=== PATIENT | female | born 1950 | race Caucasian/White ===

== ENCOUNTER → 2023-04-04 11:00 | Outpatient (CLI) | payer OTHER, SELFPAY ==
--- NOTE | 2023-04-04 | DI.CT.S_ITS ---
PROCEDURE: CT LUMBAR SPINE WO CON INDICATIONS: Spinal stenosis, lumbar region with neurogenic claudication TECHNIQUE: Noncontrast 3 mm thick sections acquired from the T12 level to the sacrum. Sagittal and coronal reformats were constructed. For radiation dose reduction, the following was used: automated exposure control. COMPARISON: None. FINDINGS: Image quality: Excellent. Bones: No acute vertebral body compression fractures. No suspicious lytic or blastic bony lesions. No pars defects. Grade 1 anterior spondylolisthesis L4-5 and L5-S1 T12-L1: Unremarkable L1-L2: Unremarkable L2-L3: Unremarkable L3-L4: Disc space narrowing and hypertrophic facet joints results in mild central stenosis. Moderate left and mild right foraminal stenosis L4-L5: Disc space narrowing with circumferential disc bulge and hypertrophic facet joints results in severe central stenosis. Moderate bilateral foraminal stenosis L5-S1: Disc space narrowing and hypertrophic facet joints present. Mild central stenosis. Moderate bilateral foraminal stenosis. Soft tissues: No retroperitoneal masses or hematomas. Visualized aorta is normal in caliber. IMPRESSION: Multilevel degenerative disc disease and arthropathy results in varying degrees of central and foraminal stenosis including severe central stenosis L4-5 Approved by: Alejandro Murillo M.D. on 04/04/2023 at 18:26
== END ==
PROVIDERS: PCP Family Medicine; Referring Provider Orthopaedic Surgery Orthopaedic Surgery of the Spine; Visit Provider Orthopaedic Surgery Orthopaedic Surgery of the Spine
DX: M48.062 Spinal stenosis, lumbar region with neurogenic claudication (principal); M48.07 Spinal stenosis, lumbosacral region; M51.36 Other intervertebral disc degeneration, lumbar region; M47.816 Spondylosis without myelopathy or radiculopathy, lumbar region; M47.817 Spondylosis without myelopathy or radiculopathy, lumbosacral region
CPT/HCPCS: 72131

== ENCOUNTER 2023-05-09 06:29 | Inpatient (IN) | payer OTHER, SELFPAY ==
[2023-05-02 08:37] VITALS: BMI 27.8
[2023-05-09] VITALS (15 sets, daily range): BP systolic 110–144; BP diastolic 52–78; PULSE 61–89; RESP 10–20; TEMP 36–36.5; O2SAT 91–98; BMI 27.8
[2023-05-09] MEDS: LACTATED RINGERS 1,000 ML 42 ML IV ×3 (07:31→12:10)
--- NOTE | 2023-05-09 07:45 | PM.PREOP ---
Pre-operative Note Interval Note History & Physical reviewed/Exam performed by Physician: Yes Changes to H&P: No
[2023-05-09] MEDS: CEFAZOLIN 2 GM/100 ML PREMIX 100 ML IV ×3 (08:12→23:15)
--- NOTE | 2023-05-09 08:44 | SUR.OPER ---
Prone on spine table, head in foam head support, padded chest and pelvic supports, gel pad at knees, lower legs supported by pillows; nipples, genitalia and toes free of pressure, arms secured on foam padded arm boards at <90 degrees abduction. Tape over blanket at thigh secured to table.
[2023-05-09] MEDS: BUPIVACAINE 0.25% (PF) 30 ML, EPINEPHrine 0.15 MG INJ (09:24)
[2023-05-09] MEDS: BUPIVACAINE LIPOSOME 266 MG/20 ML VIAL INJ (09:26)
--- NOTE | 2023-05-09 11:42 | DI.RAD.S_ITS ---
PROCEDURE: XR LUMBAR SPINE 2-3V INDICATIONS: L 4-5, L5-S1 TLIF TECHNIQUE: 2 views of the lumbar spine were acquired. COMPARISON: [facility] JOSE DE JESUS Jimenez, XR LUMBAR SPINE 2 OR 3 VIEWS, 01/07/2023, 9:41. FINDINGS: Spot fluoroscopic intraoperative images of the lumbar spine demonstrate postsurgical changes from posterior fixation at L4-5 and L5-S1 with bilateral pedicle screws and interbody rods as well as disc spacers. IMPRESSION: Postsurgical changes at L4 through S1. Approved by: Wilton Romero M.D. on 05/09/2023 at 11:55
--- NOTE | 2023-05-09 12:03 | P.OP_ITS ---
Operative Date/Time/Diagnoses Date of procedure: 05/09/23 Time of procedure: 07:40 Pre-op diagnosis: 1. L4-5, L5-S1 spondylolisthesis 2. Lumbar spinal stenosis with neurogenic claudication Post-op diagnosis: same Procedure & Clinicians Procedure: 1. L4-5, L5-S1 Postero-lateral and posterior interbody fusion 2. L4-5, L5-S1 interbody cage placement. 3. L4-5, L5-S1 decompressive laminectomy with bilateral facetecomies 4. L4-5, L5-S1 Posterior segmental instrumentation 5. [place] of bone marrow from iliac crest 6. Utilization of microsurgical technique and operating microscope 7. Utilization of robotic assisted navigation Same procedure as scheduled: Yes Indications: Patient has been having chronic back pain and worsening lumbar radiculopathy and symptoms of neurogenic claudication. Patient failed multiple conservative management with worsening pain weakness and numbness in her lower extremity. Patient has been having difficulty performing activity of daily living. After discussing risks benefits of treatment options, patient elected proceed with surgery. Surgeon: Leo Masterson [facility] Nurse Practitioner: Milana Mckee Click Yes if Unassisted: No Anesthesia Type: General Operative Notes Closure Type: primary Specimen(s): none sent Prosthetic devices, grafts, tissues, transplants, or devices: Globus CREO MIS screws, Rise cages Applied: catheter Estimated Blood Loss (mL): 100 Blood products transfused: none Procedure in detail: Patient was seen in the preoperative area. Risks and benefits of the surgery was discussed with the patient. Informed consent was obtained from the patient and placed in the chart. Surgical site was marked. Patient was taken to the operative room. General anesthesia was administered. Prophylactic antibiotic was given to the patient less than 30 min before the incision was made. Patient was placed into a prone position on the Maverick table. Patient's back was then prepped and draped in the sterile fashion. Time-out was performed at this time. After patient was prepped and draped, patient's PSIS was palpated and marked bilaterally. Small 1 cm incision was made over the PSIS for placement of the reference probes. Two trocar was placed into the PSIS 1 on each side. The reference probe was attached to the trocar of the reference apparatus. At this time the C-arm imaging was used to confirm AP and lateral of L4-L5, L5- S1 vertebrae and merged the C-arm imaging using the Happify robotic navigation system with the CT of the lumbar spine. After successful merging was completed and confirmed, skin marker was used to paulina out the skin incision using the Happify robotic arm. Bilateral incision was made at this time. Pre templated trajectory was used and guided using the Happify robotic navigation system for bilateral L4, L5, S1 pedicle screw placement. This was done by using the robotic arm to guide the high-speed bur to make a cortical entry point. Next a drill was placed also using the robotic arm and guided using the navigation system drilling partially through bilateral L4, L5 and S1 pedicles. Next L4, L5, S1 pedicle screws it was pre templated and measured was placed onto the power courtesy driver and inserted into the pedicles bilaterally. After all 6 screws were placed C-arm imaging was taken of both AP and lateral to confirm the placement. Excellent placement of the screws were confirmed and a matched precisely with the pre planned screw placement using the navigation system. MARs retractor was inserted using Howbuyivation guidence. Globus MARS retractors was placed inside the incision and docked onto the L4 and L5 lamina. Using microsurgical technique and operating microscope, a L4, L5 laminectomy and L4-5, L5-S1 facetectomy was performed using a Kerrison rongeur. The laminectomy and facetectomy was performed in order to decompress patient's cauda equina as well as the nerve roots exiting at the L4-5, L5-S1 level. Patient was found have severe lateral recess and neural foramen stenosis which was fully decompressed a fter the laminectomy facetectomy. More than 75% of the facets were removed during the process of decompression rendering L4-5, L5-S1 level grossly unstable and required a fusion procedure at the same time. The disc space at L4-5, L5-S1 was identified, and a total diskectomy was performed at L4-5, L5-S1 level. The endplates were decorticated using a rasp and shaver. The total diskectomy and decortication was performed at L4-5, L5-S1 level in order to to accomplish a L4- 5, L5-S1 fusion. The local bone from the laminectomy and facetectomy was saved for local bone grafting. After the total diskectomy and decortication was completed, Trifecta bone graft material was combined with local bone that was harvested earlier. At this time, a separate skin is incision was made over the iliac crest. A Jamshidi needle was inserted into the iliac crest through a separate skin incision. 5 cc of bone marrow aspiration was obtained through the separate skin incision using a Jamshidi needle from the iliac crest. The bone marrow aspiration was combined with local bone and the DBM bone grafting material. The bone grafting material was placed into the L4-5, L5-S1 interbody space along with a expandable cage. The cage was expanded to its maximum height using the torque limiting screwdriver. The disc preparation as well as the cage insertion were also performed under navigation guidance. After the cage was placed, AP and lateral C-arm imaging was taken to confirm placement of the cage and excellent position was confirmed. Globus MARS retractor was inserted and docked onto the L4-5, L5-S1 posterolateral gutter on the right side. Using the power drill, posterior- lateral decortication was performed at L4-5, L5-S1 level until bleeding cortical bone was identified. The remaining bone grafting material was placed into the L4-5, L5-S1 posterior lateral gutter he order to accomplish posterolateral fusion at the L4-5, L5-S1 level. At this time the tulips were attached to the L4, L5, S1 pedicle screw shanks. After measuring the length of the rods, they were inserted into the tulips of the pedicle screws and locked in place using locking caps and torque limiting screwdriver bilaterally. Total 6 caps and 2 titanium rods was used in order to complete the posterior instrumentation construct. After all the hardware was placed, and confirmed with AP and lateral C-arm imaging, the wound was then irrigated with sterile normal saline and packed with Ray-Judie gauze for 3 min to accomplish hemostasis. After the gauze was removed the deep fascia was closed with #1 Vicryl suture. The subcutaneous layer was closed with 2-0 Vicryl. The skin was closed with skin marcelina. Patient tolerated the procedure well. There were no complications. Neuro monitoring system was used to monitor patient's neurologic status throughout entire procedure. There was no disturbance of the neural monitoring signals throughout the case. The Operation could not have been safely performed without compromising the technical result or length of the procedure, without the assistance of a skilled surgical garment fitter. The surgical garment fitter was medically necessary for proper positioning, retraction and manipulation of instruments, proper exposure, surgical preparation, and manipulation of tissue. Complications: none Post-operative Condition: stable Disposition: PACU Plan for aftercare: Admit to inpatient hospital
[2023-05-09] MEDS: hydrOXYzine pamoate 25 MG CAPSULE PO (12:41)
[2023-05-09] MEDS: ACETAMINOPHEN 325 MG TABLET 650 MG PO ×2 (12:41→20:02)
[2023-05-09] MEDS: TRAMADOL 50 MG TABLET PO (12:41)
[2023-05-09 12:52] LABS: Appearance Urine UA CLEAR; Bilirubin Urine UA NEGATIVE (NEGATIVE); Color Urine UA YELLOW; Glucose Urine UA NEGATIVE (Negative); Ketones Urine UA NEGATIVE (NEGATIVE); Leukocyte Esterase Urine UA NEGATIVE (NEGATIVE); Nitrite Urine UA NEGATIVE (Negative); Occult Blood Urine UA 3+ (Negative); Protein Urine UA NEGATIVE (Negative); Specific Gravity Urine UA 1.025 (1.000-1.035); Urobilinogen Urine UA 0.2 E.U./dL (0.2)
[2023-05-09 12:53] LABS: pH Urine UA 5.5 (4.5-8.0)
[2023-05-09 13:00] LABS: Bacteria Urine None Seen; Culture Indicated Urine Cult Not Indicated; RBC Urine 10-30/HPF (0-5/HPF); Squamous Epithelial Cell Urine 0-1 /HPF (0-5/HPF); Uric Acid Crystals Urine Moderate; WBC Urine None Seen (0-5/HPF)
--- NOTE | 2023-05-09 13:01 | SUR.PHASEI ---
Report called to
--- NOTE | 2023-05-09 13:23 | SUR.PHASEI ---
Patient transferred to the floor with her belongings bag. Bedside report given too SLAVA Alvarez. Condition stable. IV and epstein patent. Dressing checked with RN.
[2023-05-09] MEDS: LACTATED RINGERS 1,000 ML 125 ML IV ×2 (13:25→20:10)
--- NOTE | 2023-05-09 16:05 | OT.IP.EVAL ---
Current Diagnoses Spondylolisthesis, lumbar region (05/09/23) Spinal stenosis, lumbar region with neurogenic claudication (05/09/23) Surgery Performed Operation Date: 05/09/23 07:45 Actual Procedures p L4-5, L5-S1 TLIF with posterior instrumentation -Robot - Leo Masterson MD Past Medical History (Last Updated 05/02/23 @ 09:06 by Cammie Bo RN) Acid reflux Surgical History (Last Updated 05/02/23 @ 09:06 by Cammie Bo RN) H/O right wrist surgery Hx of appendectomy (1974) Hx of repair of right rotator cuff Hx of tubal ligation S/P foot surgery, right Occupational Therapy Inpatient Evaluation/Re-Eval M1 PT/OT-IP Prior Functional Status Start: 05/09/23 16:03 Freq: NEEDED Status: Active Protocol: Document 05/09/23 16:03 CGR (Rec: 05/09/23 16:19 CGR [id number]) Medical Review Prior Functional Status Medical History Reviewed Yes Communication Pt is an effective verbal communicator Mobility and Gait Pt states that she is IND in mobility in the AM but then needs the SPC or walker by the end of the day d/t pain. 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 Social History Household Members spouse,children Living Arrangements House Number of Floors (Floors) Two Floors Number of Stairs To Enter/Railing? no steps to enter, elevator to get to the second floor. Home Environment High Toilet,Walk in Shower, Built-In Shower Seat Home Equipment Front Wheel Walker,Manual Wheelchair,Hand Held Shower, Grab Bars Near Toilet,Grab Bars In Shower Employment Status Retired Additional Social History Comment Pt lives with her , Dev and her 37 yo son Moses . M2 OT-IP Current Condition Start: 05/09/23 16:03 Freq: Status: Active Protocol: Document 05/09/23 16:03 CGR (Rec: 05/09/23 16:19 CGR [id number]) Occupational Therapy Current Condition Current Condition Evaluation Date 05/09/23 Treatment Diagnosis L4-S1 TLIF Diagnosis Onset Date 05/09/23 M3 OT- IP Subjective and Pain Start: 05/09/23 16:03 Freq: Status: Active Protocol: Document 05/09/23 16:03 CGR (Rec: 05/09/23 16:19 CGR [id number]) OT- Subjective Occupational Therapy Visit Type Type Initial Evaluation Visit Start Time 15:26 Visit Stop Time 16:05 Total Visit Minutes 39 OT Pain Assessment Pain When Pain Assessed At Rest Pain Present Pain Present Pain Reported Location back Intensity 4 Scale Used Numeric (0 - 10) Management Techniques Modification of Treatment,Re- positioning,Timing of Activity with Medications M4 OT- IP ADL's Start: 05/09/23 16:03 Freq: Status: Active Protocol: Document 05/09/23 16:03 CGR (Rec: 05/09/23 16:19 CGR [id number]) OT ACL-Dzdk-Wdamani General Evaluation Self-Feeding Ability Independent Comments OT Self-Feeding Comments eating jello OT ADL-Grooming Comments OT Grooming Comments not performed OT ADL-Oral Care Comments Oral Care Comments not performed OT ADL-Dressing General Eval Lower Body Dressing Ability Total Assistance Areas Needing Assistance Socks OT ADL-Toileting General Evaluation Toileting Ability Total Assistance Comments OT Toileting Comments epstein OT ADL-Bathing Comments OT Bathing Comments not performed M5 OT- IP IADL's Start: 05/09/23 16:03 Freq: Status: Active Protocol: Document 05/09/23 16:03 CGR (Rec: 05/09/23 16:19 CGR [id number]) OT-Instrumental Activities of Daily Living Deficits IADL Deficits Identified No Deficits Home Safety Awareness Awareness of Need for Assistance at Home Good Awareness Ability to Problem Solve Emergency Able to Problem Solve Situations Medication Management Medication Management No Deficits Identified Money Management Money Management No Deficits Identified Meal Preparation Meal Preparation No Deficits Identified Musical Instrument Maker Or Repairer Musical Instrument Maker Or Repairer Caregiver Provides Assist Driving Driving 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 OT- IP Functional Cognition Start: 05/09/23 16:03 Freq: Status: Active Protocol: Document 05/09/23 16:03 CGR (Rec: 05/09/23 16:19 CGR [id number]) Cognitive Factors Limiting Selfcare Function Cognitive Ability Level of Alertness Alert Patient Orientation Name,Age,Birthday,Month,Date, Year,Day of Week,Place, Situation Attention Span Ability Capable of Focused Attention, Capable of Sustained Attention Ability to Follow Commands Able to Follow One Step Commands with Increased Time, Able to Follow One Step Commands with Repetition OT- Vision and Hearing OT- Hearing Assessment OT- Hearing Assessment WFL OT- Vision Assessment Visual Acuity Glasses For Reading Visual Attentiveness WFL Occular Pursuits WFL Visual Convergence WFL M7 OT- IP Mobility and Balance Start: 05/09/23 16:03 Freq: Status: Active Protocol: Document 05/09/23 16:03 CGR (Rec: 05/09/23 16:19 CGR [id number]) OT- Bed Mobility Assessment Supine to Sit Supine to Sit Assist Standby Assistance Scooting Scooting to Edge of Bed Standby Assistance OT-Transfer Assessment Sit to and From Stand Sit to and from Stand Standby Assistance Transfers Transfer Ability Standby Assistance Technique Transfer Destination Bed,Chair Transfer Technique Stand Step Pivot Devices Transfer Assistive Devices Gait Belt,Front Wheeled Walker Comments Mobility Comments Pt performed bed mobility from a flat bed then stood and ambulated in the room ~10 feet total before returning to chair. OT- Balance Assessment Sitting Balance and Reactions Static Sitting Balance Ability Good Dynamic Sitting Balance Ability Good M8 OT- IP Objective Assessments Start: 05/09/23 16:03 Freq: Status: Active Protocol: Document 05/09/23 16:03 CGR (Rec: 05/09/23 16:19 CGR [id number]) OT Gross Range of Motion Upper Extremity Range of Motion Assessment Within Functional Limits OT Strength Upper Extremity Strength Assessment Within Functional Limits Comments Strength Comments grossly 4+/5 OT- Coordination Assessment Upper Extremity Finger to Nose Test Within Functional Limits Finger Tapping Test Within Functional Limits OT-Muscle Tone Assessment Muscle Tone WNL Yes OT Sensation Assessment Edema Edema Absent M9 OT- IP Assessment and Plan Start: 05/09/23 16:03 Freq: Status: Active Protocol: Document 05/09/23 16:03 CGR (Rec: 05/09/23 16:19 CGR [id number]) OT Summary Assessment and Plan Potential Rehabilitation Potential Excellent Analytic Complexity at Evaluation Low Summary OT Impairments Pain,Balance,Functional Mobility,Grooming,Dressing, Toileting,Bathing,Toilet Transfers,Shower Transfers, Activity Tolerance Progress Towards Goals Progressing Toward Goals Assessment Summary Pt presents as a low complexity evaluation s/p admit for L4-S1 TLIF. Pt is progressing well with out of bed activity on POD #0. Pt is likely to progress to discharge home tomorrow. Pt will benefit from 1-2 more OT sessions for LB dressing and home safety after back sx. Goals Grooming Goal Independent Dressing Goal Independent Toileting Goal Independent Bathing Goal Independent Toilet Transfer Goal Independent Shower Transfer Goal Independent Days to Meet Goals 2 Frequency of Treatment Frequency Of Treatment Once a Day Treatment Plan OT Treatment Plan ADL Training,Functional Mobility,Patient/Family Education,Discharge Planning Other Treatment Recommendations and Next LB dressing, home safety after Treatment Focus back sx Discharge Recommendations OT Discharge Recommendations Home with Assistance Transportation Needs at Discharge Private Vehicle
[2023-05-09] MEDS: HYDROMORPHONE 2 MG TABLET PO ×2 (17:22→23:14)
--- NOTE | 2023-05-09 18:17 | PC.NURSE ---
Day shift: Pt up to floor from PACU at 1310. Moderate amount of shadow drainage noted on back dressing. Marked with sharpie. Called MD Masterson regarding need for pain medications that are not oxycodone (pt reports having extreme episode of dizziness in the past with oxycodone and/or hydrocodone). Received verbal order to d/c oxycodone and changed to PO dilaudid per MD Masterson. Also notified MD Masterson of pt reporting numbness in R thigh. Good pulses. No redness or swelling. Pt reports she can feel her lower leg, only thigh that is numb. MD Masterson stated no action needed right now. Will continue to monitor.
[2023-05-09] MEDS: DOCUSATE 100 MG CAPSULE PO (20:01)
[2023-05-09] MEDS: SENNOSIDES 8.6 MG TABLET 17.2 MG PO (20:02)
[2023-05-10] MEDS: LACTATED RINGERS 1,000 ML 125 ML IV (04:59)
[2023-05-10] MEDS: HYDROMORPHONE 2 MG TABLET PO ×2 (05:06→15:44)
[2023-05-10 06:47] LABS: Hematocrit 36.1 % (36-46); Hemoglobin 12.1 g/dL (12.0-16.0)
--- NOTE | 2023-05-10 07:23 | PM.PNPO.1 ---
Subjective Subjective Date Patient Seen: 05/10/23 Time Patient Seen: 07:24 Interval history: Patient's pain has been moderate to severe. Denies fever or chills. No nausea or vomiting. Patient does have assistance at home. Patient states he has been difficult to get in and out of bed secondary to her pain Exam Vital Signs (past 8 hours): Oxygen Delivery Method Room Air Oxygen Flow Rate 0 Narrative Exam Narrative: 72-year-old female sitting in bedside chair in no apparent distress. Motor functions intact bilateral lower extremities. Sensation grossly intact to light touch bilateral lower extremities. Const General: cooperative and comfortable Nutritional Appearance: average body habitus Orientation: alert Resp Effort & Inspection: normal respiratory effort and able to speak in complete sentences Objective Labs 05/10/23 05:35 Labs: Laboratory Results - last 24 hr 05/09/23 05/10/23 12:20 05:35 Hgb 12.1 Hct 36.1 Urine Color Yellow Urine Appearance Clear Urine pH 5.5 Ur Specific [place] 1.025 Urine Protein Negative Urine Glucose (UA) Negative Urine Ketones Negative Urine Occult Blood 3+ H Urine Nitrate Negative Urine Bilirubin Negative Urine Urobilinogen 0.2 Ur Leukocyte Esterase Negative Urine RBC 10-30/hpf H Urine WBC None seen Ur Squamous Epith Cells 0-1 /hpf Uric Acid Crystals Moderate H Urine Bacteria None seen Ur Culture Indicated? Cult not indicated PFSH Medical History Acid reflux Surgical History S/P foot surgery, right H/O right wrist surgery Hx of repair of right rotator cuff Hx of tubal ligation Hx of appendectomy (1974) Social History household members: spouse and children Smoking Status: Never smoker alcohol intake: current Assessment & Plan Post-op Postoperative Procedures: Procedures Operation Date: 05/09/23 07:45 Actual Procedure Side Surgeon p L4-5, L5-S1 TLIF with posterior instrumentation -Robot Leo Masterson MD Postoperative day: 1 Postoperative status: doing well and marginal pain control Postoperative plan: routine post-op care Postoperative plan narrative: Mobilize with physical therapy, limit bending, twisting, lifting Multimodal pain management Disposition, likely home later today after physical therapy
[2023-05-10] MEDS: DOCUSATE 100 MG CAPSULE PO (07:50)
[2023-05-10 08:00] VITALS: BP 112/59; PULSE 66; RESP 18; TEMP 36.4; O2SAT 97
[2023-05-10] MEDS: ACETAMINOPHEN 325 MG TABLET 650 MG PO ×2 (08:03→13:36)
--- NOTE | 2023-05-10 09:38 | PT.IIE ---
Current Diagnoses Spondylolisthesis, lumbar region (05/09/23) Spinal stenosis, lumbar region with neurogenic claudication (05/09/23) Surgery Performed Operation Date: 05/09/23 07:45 Actual Procedures p L4-5, L5-S1 TLIF with posterior instrumentation -Robot - Leo Masterson MD Surgical History (Last Reviewed 05/10/23 @ 07:25 by JUNIOR BarretoC) H/O right wrist surgery Hx of appendectomy (1974) Hx of repair of right rotator cuff Hx of tubal ligation S/P foot surgery, right Medical History (Last Reviewed 05/10/23 @ 07:25 by KVNG Barreto-C) Acid reflux Physical Therapy Inpatient Evaluation/Re-Eval M1 PT/OT-IP Prior Functional Status Start: 05/09/23 16:03 Freq: NEEDED Status: Active Protocol: Document 05/10/23 09:05 MB (Rec: 05/10/23 09:38 [id number]) Medical Review Prior Functional Status Medical History Reviewed Yes Communication Pt is an effective verbal communicator Mobility and Gait Pt states that she is IND in mobility in the AM but then needs the SPC or walker by the end of the day d/t pain. 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 Social History Household Members spouse,children Living Arrangements House Number of Floors (Floors) Two Floors Number of Stairs To Enter/Railing? no steps to enter, elevator to get to the second floor. Home Environment High Toilet,Walk in Shower, Built-In Shower Seat Home Equipment Front Wheel Walker,Manual Wheelchair,Hand Held Shower, Grab Bars Near Toilet,Grab Bars In Shower Employment Status Retired Additional Social History Comment Pt lives with her , Dev and her 37 yo son Moses . M2 PT-IP Current Condition Start: 05/10/23 08:58 Freq: NEEDED Status: Active Protocol: Document 05/10/23 09:05 MB (Rec: 05/10/23 09:38 [id number]) Physical Therapy Current Condition Current Condition Evaluation Date 05/10/23 Treatment Diagnosis L4-5, L5-S1 TLIF post- instrumentation Onset Date 05/09/23 M3 PT-IP Subjective Start: 05/10/23 08:58 Freq: NEEDED Status: Active Protocol: Document 05/10/23 09:05 MB (Rec: 05/10/23 09:38 MB [id number]) Subjective Physical Therapy Visit Type Type Initial Evaluation Visit Start Time 09:05 Visit Stop Time 09:26 Total Visit Minutes 21 Number of BROTH SETTER Visits 0 Physical Therapy Visit Comments Patient Comments The pain is worse today. Therapy Pain Assessment Pain When Pain Assessed During Mobility Pain Present Pain Present Pain Reported Location back Intensity 6 Scale Used Cody-Parada (Faces) Description Acute,Sharp,Spasm,Stabbing Pain Behaviors Facial Grimacing,Guarding, Wincing Pain Management Techniques Apply Cold,Distraction, Modification of Treatment,Re- positioning,Timing of Activity with Medications M4 PT-IP Mobility and Gait Start: 05/10/23 08:58 Freq: NEEDED Status: Active Protocol: Document 05/10/23 09:05 MB (Rec: 05/10/23 09:38 [id number]) PT-Bed Mobility Assessment Rolling Type of Rolling Log Rolling Level of Assist Standby Assistance,1 Person Assistance Supine to Sit Supine to Sit Moderate Assistance,1 Person Assistance Sit to Supine Sit to Supine Maximum Assistance,1 Person Assistance Scooting Scooting to Edge of Bed Standby Assistance PT-Transfer Assessment Sit to and From Stand Sit to and from Stand Standby Assistance Equipment Transfer Assistive Device Gait Belt,Front Wheeled Walker Orthotic/Prosthetic Devices or Brace: No Comments Mobility Comments Pt performs STS from toilet to RW with left hand on rail and right and on walker and CGA, SBS for STS from bed to RW and RW back to bed, cues to push up from the bed and not from the walker, gait belt donned Gait Assessment Gait Gait Assistance Required: Contact Guard Assist,1 Person Assist Distance (Feet) 60 Able to Maintain Weight Bearing Status Yes During Gait Assistive Devices Assistive Device Gait Belt,Front Wheeled Walker Orthotic/Prosthetic Devices or Brace: No Gait Deviations General Gait Pattern Antalgic,Decreased Stride Length,Decreased Feet Clearance Factors Limiting Gait Function Factors Limiting Gait Function Decreased Activity Tolerance, Decreased Sensation,Decreased Strength,Pain Comments Gait Comments Pt gait trains slowly, 15' from commode to bed, 60' in the hallway and back to bed, one turn, with RW and wide LAY and careful, antalgic stepping. No dizziness. PT-Balance Assessment Sitting Balance and Reactions Static Sitting Balance Ability Fair Dynamic Sitting Balance Ability Fair Standing Balance and Reactions Static Standing Balance Ability Fair Dynamic Standing Balance Ability Fair Device Used RW M5 PT-IP Objective Assessments Start: 05/10/23 08:58 Freq: NEEDED Status: Active Protocol: Document 05/10/23 09:05 MB (Rec: 05/10/23 09:38 [id number]) Orientation Orientation/Cognition Level of Alertness Alert Orientation Name,Age,Birthday,Month,Date, Year,Day of Week,Place, Situation Language Function Ability No Deficits Noted Safety Awareness Understands Safety Issues Memory Description No Deficits Noted Gross Range of Motion Upper Extremity ROM Impairments Defer to OT Lower Extremity ROM Assessment Within Functional Limits Impairments Did not push range in legs or perform MMT given back surgery last date and pt with c/o right thigh numbness Strength Comments Strength Comments Deferred manual muscle testing and pt's LE strength is functional for transfers and gait with RW today Sensation Assessment Sensation Gross Sensation Right LE Impaired Sensation Description Numbness Comments Sensation Comments Right thigh numbness is new post-op and pt reports resolution of her pre-op left leg paresthesias M6 PT-IP Treatment Start: 05/10/23 08:58 Freq: NEEDED Status: Active Protocol: Document 05/10/23 09:05 MB (Rec: 05/10/23 09:38 [id number]) Physical Therapy Treatment Education Education Provided Precautions,Safety M7 PT-IP Assessment and Plan Start: 05/10/23 08:58 Freq: NEEDED Status: Active Protocol: Document 05/10/23 09:05 MB (Rec: 05/10/23 09:38 [id number]) PT Summary Assessment and Plan Potential Rehabilitation Potential Good Status of Condition at Evaluation Stable Summary Impairments Pain,ROM,Strength,Balance, Sensation,Bed Mobility, Transfers,Gait,Activity Tolerance Progress Towards Goals Progressing Toward Goals Assessment Summary Pt is a pleasant lady who requires SBA with RW for transfers and gait post-op and up to mod A for bed mobility to help sit up and scoot legs back in the bed when in side lying. Pt is unable to perform mini functional bridge to scoot in the bed d/t spasm pain. She performs bed mobility and log rolling to each direction today and needs to get up to her right at home and getting in and out of the bed on the right side is more difficult for her today. She does not have any dizziness and she does report new onset of right thigh numbness since surgery. Her pre-op left leg paresthesias are resolved post-op. She has some functional weakness in legs post-op and deferred MMT post-op day one and with her pain complaints today. She will benefit from acute and post-acute PT to improve I mobility, transfers, gait and balance. Goals Bed Mobility Goal Independent Transfer Goal Independent,Front Wheeled Walker Gait Goal Independent,Front Wheel Walker Gait Distance 100 Days to Meet Goals 2 Frequency of Treatment Frequency Of Treatment Twice a Day Treatment Plan Physical Therapy Treatment Plan Bed Mobility Training,Transfer Training,Gait Training, Therapeutic Exercise,Balance Retraining,Post Op Education, Hot or Cold Pack,Neuromuscular Re-ed Precautions Lumbar Precautions Log Roll,No Twisting,Limit Bending,Lifting Restriction of 10 lbs,Gait Belt above Incisional Area Other Precautions Pt verbalized all back precautions without cues from PT. Weight Bearing Status Weight Bearing Status Weight Bear as Tolerated Recommendations To Nursing Amount of Assist Needed 1 Person Assist Discharge Recommendations PT Discharge Recommendations Home with Assistance, Outpatient PT Transportation Needs at Discharge Private Vehicle
--- NOTE | 2023-05-10 10:39 | CM.DANOTE ---
Patient is a 72 yo female who was admitted on 05/09/23 for TLIF with Robot. Pt has [facility] for insurance and her PCP is Kate Schulz. EMR was reviewed. Per Ortho PA, pt tolerated procedure well and to work more with PT/OT to confirm pain managed and possible d/c home today vs tomorrow pending progress. Per PT/OT, pt able to participate and needs to complete CG training and stairs but likely d/c home with spouse assist when stable and will work with her again this afternoon. SW met bedside with pt and spouse and explained role and they confirm they live at home in [place] along with their adult son and both are active and independent at baseline. Pt still drives and does not typically use DME for ambulation but with her back pain she had started to be more limited in her physical activity. Pt denies any hx of HH or SNF and is hopeful to d/c home today pending her pain with mobility. Spouse confirms he plans to provide transport at d/c and they do not currently anticipate any d/c needs. Plan: SW to follow for further PT/OT today to confirm safe d/c home with spouse assist and any further identified discharge planning needs. QUETA Arguello Discharge Planning/Care Management Advanced directive, confirm from FAMILY Start: 05/09/23 14:42 Freq: Q24H Status: Active Protocol: Document 05/09/23 14:42 SB (Rec: 05/09/23 14:51 SB [id number]) Advance Directive, confirm on record Time 14:51 Person contacted Dev () - he states he will bring tomorrow Copy received No CM Discharge Assessment Start: 05/10/23 10:37 Freq: Status: Active Protocol: Document 05/10/23 10:37 BF (Rec: 05/10/23 10:39 BF [id number]) Discharge Planning Assessment Assigned Principal Trainer QUETA Cardona DPOA/Assigned Designee Name spouse Richard Contact Information [phone] Advance Directives? Yes Advance Directives on File No: will bring History Provided By Patient,Significant Other, Medical Record Has Patient been admitted in last 30 No days? Prior Living Arrangements House Household Members spouse,children Type of transporation used prior to Drives own vehicle admit Independent with ADL's Yes Is patient alert and oriented? Yes Caregiver for Another No Patient/Family Preference OP PT Therapy Barriers to Discharge No Discharge Plan Home Transportation Arrangement spouse bedside and willing to transport Referrals Initiated None needed Additional Comment Pending final PT/OT recommendations Whiteboard Updated in Patient Room with Yes name and ext. # of Principal Trainer Review Status In Process Please Provide Date Initial DC 05/10/23 Assessment Was Performed Next Review Type Continued Stay Review Pre-Anesthesia Assessment Start: 05/02/23 08:37 Freq: Status: Active Protocol: Document 05/02/23 08:37 CAB (Rec: 05/02/23 09:25 CAB [id number]) Pre-Anesthesia Assessment Preferred Name Rhea Patient Information Reviewed Via Phone Assessment Assessment Completed With Patient Diagnostic Results BMP/CMP,CBC,EKG Comment Outside labs/EKG scanned Primary Care Provider Kate Schulz Seen Specialist in Last 12 Months Yes Specialist Seen Orthopedist Primary Language Frisian Supervisor Metal Furniture Fabrication Required No Height 170.18 cm Weight 80.739 kg Body Mass Index (BMI) 27.8 Hearing Ability Normal Visual Assist Magnifying Glass Dentition Type Teeth, Natural Present Barriers to Learning None Hx Anesthesia Reactions No Hx Family Anesthesia Reaction No Hx Malignant Hyperthermia No Hx Blood Transfusions No Anesthesia Review Requested No Line Construction Superintendent No alcohol intake current alcohol intake frequency 0-2 drinks per day Smoking Status Never smoker Substance Use Type does not use Pain Present Pain Reported Musculoskeletal Symptoms Abnormal Gait,Back Pain, Difficulty Walking,Radiating Pain into Limb History of Falling (Recent or History of Yes ) Patient is completely paralyzed or No completely immobile Prosthesis or Orthotic Device Cane Mental Status Oriented to own ability Is patient on oxygen? No Does patient have WALLS/SOB No Hx Sleep Apnea No Currently Taking a Beta Delfino No Can You Climb a Flight of Stairs Without Yes SOB Hx Chest Pain No Hx SOB No Hx Syncope or Dizziness No Anti-Coagulant Therapy No Has a Support Architect No Cardiac Testing No Hx Pacemaker/ICD No Pacemaker Rep Required? No Diet Type At Home Regular Dysphagia No Gastrointestinal Symptoms Reflux Chronic UTI No Urinary Catheter Present No Hx Urinary Self Catheterization No Diabetes No HgbA1C 6.0 Date 04/04/23 Patient No Lactating No Presence of External or Internal Medical Yes: Right wrist, foot Devices Have you had any close contact with No someone diagnosed with COVID-19? Received a COVID vaccine? Yes Received all doses? Yes Marital Status Lives With spouse,children Current Living Arrangements House Number of Floors (Floors) Two Floors Number of Stairs To Enter/Railing? None, pt has an elevator inside the home Support System Child/Children,Spouse Does the Patient Have Assistance After Yes Surgery Patient Discharge Plan Description Return Home Comment Pt advised 1-2 night length of stay per surgeon Feels Safe in Current Environment Yes Been Physically Hurt or Threatened By a No Person in Current Environment Do you have thoughts of harming yourself None or others? Are you currently considering suicide? No Do you have a plan to hurt yourself or No Plan others? Do You Have Any Spiritual Beliefs That No May Affect Your HC Choices? Do You Have Any Cultural Practices That No May Affect Your HC Choices? Comment Atheist Who Can We Speak to About Patient's Care Family, friend Identifying Code for Release of Patient Declines to issue Information Health Care Proxy/Next of Kin Dev () Health Care Proxy Emergency Contact Name Dev () Emergency Contact Advance Directives? Yes Advance Directives on File No Requested Patient Bring Advanced Yes Directives DOS Power of Deputy Sheriff Building Guard Yes Power of Deputy Sheriff Building Guard Name Dev () Power of Deputy Sheriff Building Guard PAC Instructions Durable medical equipment, Medications to take/avoid, Nasal antibiotic,No ETOH/ petroleum product on skin DOS, NPO,Post-op transportation,Pre -surgical wash,Sensory aids, Sturdy shoes/comfortable clothes,Do not bring valuables and remove jewelry
--- NOTE | 2023-05-10 10:48 | P.DS_ITS ---
History of Present Illness History of Present Illness Date Patient Seen: 05/10/23 Time Patient Seen: 10:48 Chief complaint: Low back pain Narrative: Patient did well with physical therapy. Her 's home to assist her. Discharge Providers Provider Date of admission: 05/09/23 06:29 Discharge Date: 05/10/23 Primary care physician: Kate Schulz MD Consults: 05/09/23 13:20 Consult to Occupational Therapy Evaluate & Treat Comment: Physician Instructions: Evaluate and treat Consult to Physical Therapy Evaluate & Treat Comment: Physician Instructions: Evaluate and Treat Discharge provider: Mateo Zheng PA-C Summary Hospital Course Discharge Diagnosis: 1. L4-5, L5-S1 spondylolisthesis 2. Lumbar spinal stenosis with neurogenic claudication Hospital Course: 1. L4-5, L5-S1 Postero-lateral and posterior interbody fusion 2. L4-5, L5-S1 interbody cage placement. 3. L4-5, L5-S1 decompressive laminectomy with bilateral facetecomies 4. L4-5, L5-S1 Posterior segmental instrumentation 5. [place] of bone marrow from iliac crest 6. Utilization of microsurgical technique and operating microscope 7. Utilization of robotic assisted navigation Same procedure as scheduled: Yes Indications: Patient has been having chronic back pain and worsening lumbar radiculopathy and symptoms of neurogenic claudication. Patient failed multiple conservative management with worsening pain weakness and numbness in her lower extremity. Patient has been having difficulty performing activity of daily living. After discussing risks benefits of treatment options, patient elected proceed with surgery. Surgeon: Leo Masterson Cloth Bleaching Range Back Tender: Milana Mckee Click Yes if Unassisted: No Anesthesia Type: General Operative Notes Closure Type: primary Specimen(s): none sent Prosthetic devices, grafts, tissues, transplants, or devices: Globus CREO MIS screws, Rise cages Applied: catheter Estimated Blood Loss (mL): 100 Blood products transfused: none Patient admitted to the hospital for the above-mentioned procedure. Patient consented to the same. Patient taken the operating room underwent L4-L5, L5-S1 lumbar fusion May 09, 2023. Patient back in her room recovering well as in stable condition. Patient had some issues with pain management this morning which is significantly improved this afternoon. She is working with physical therapy. Her is home to assist her. She will work with physical therapy 1 more time and be discharged home if safe for home environment Exam Vital Signs (past 8 hours): - 05/10/23 08:00 Temperature 97.5 F L Pulse Rate 66 Respiratory Rate 18 Blood Pressure 112/59 L Pulse Oximetry 97 Oxygen Flow Rate 0 Oxygen Delivery Method Room Air Oxygen Flow Rate 0 Narrative Exam Narrative: Pleasant 72-year-old female lying on her side in bed in no acute distress. See my progress note from this morning. Objective Labs 05/10/23 05:35 Labs: Laboratory Results - last 24 hr 05/09/23 05/10/23 12:20 05:35 Hgb 12.1 Hct 36.1 Urine Color Yellow Urine Appearance Clear Urine pH 5.5 Ur Specific Lamar 1.025 Urine Protein Negative Urine Glucose (UA) Negative Urine Ketones Negative Urine Occult Blood 3+ H Urine Nitrate Negative Urine Bilirubin Negative Urine Urobilinogen 0.2 Ur Leukocyte Esterase Negative Urine RBC 10-30/hpf H Urine WBC None seen Ur Squamous Epith Cells 0-1 /hpf Uric Acid Crystals Moderate H Urine Bacteria None seen Ur Culture Indicated? Cult not indicated PFSH Medical History Acid reflux Surgical History S/P foot surgery, right H/O right wrist surgery Hx of repair of right rotator cuff Hx of tubal ligation Hx of appendectomy (1974) Social History household members: spouse and children Smoking Status: Never smoker alcohol intake: current Discharge Assessment & Plan Assessment and Plan Assessment: Patient progressing as expected Plan of Treatment: Limit bending, twisting, lifting Multimodal pain management Follow up in 2 weeks as scheduled Discharge home today if safe for home environment Discharge Plan Discharge Plan Provider Discharge Comment: DC home after PT Discharge orders & Medications Discharge Orders: Discharge (Order); Ordered 05/10/23 Ordered By: Mateo Zheng Prescriptions: New acetaminophen 325 mg Tablet 650 mg PO Q6H PRN (Reason: Fever/Mild Pain (1-3)) Qty: 60 0RF docusate sodium 100 mg Capsule 100 mg PO BID Qty: 10 0RF hydromorphone 2 mg Tablet 2 mg PO Q3H PRN (Reason: Pain, Severe (7-10)) Qty: 40 0RF hydroxyzine pamoate 25 mg Capsule 25 mg PO Q4HR PRN (Reason: Nausea And Vomiting) Qty: 20 0RF Discontinued ibuprofen 200 mg Tablet 400 mg PO BID PRN (Reason: Pain) Follow up/Referrals: Leo Masterson MD [Physician] - 05/24/23 10:00 am (Follow up w/ Andrew Meneses PA-C, on 05/24/2023 @ 10:00 am at [facility] office in [place].) Kate Schulz MD [Primary Care Provider] - Diet/Activity/Treatments Diet: Diet as Tolerated Activity: No deep bending or twisting at the waist. No lifting more than 10 pounds. Skin/Wound/Dressing Care Report to your healthcare provider any signs of infection, such as:: chills, fever, night sweats, unusual drainage and unusual redness Dressing: May shower. Keep dressing as dry as possible. If dressing becomes wet or dirty, remove and replace with clean, dry gauze. No bathing or otherwise soaking incisions. Do not apply any creams, lotions, or ointments to incisions. Visit Report/Discharge Packet Instructions: DI for Prescription Opioid Use, DI for Transforaminal Lumbar Interbody Fusion Stand Alone Forms: Patient Portal/API, Stroke Signs & Symptoms, Surgery Discharge Discharge Data Primary Care Provider: Kate Schulz
--- NOTE | 2023-05-10 11:54 | OT.IP.TRT ---
Current Diagnoses Spondylolisthesis, lumbar region (05/09/23) Spinal stenosis, lumbar region with neurogenic claudication (05/09/23) Surgery Performed Operation Date: 05/09/23 07:45 Actual Procedures p L4-5, L5-S1 TLIF with posterior instrumentation -Robot - Leo Masterson MD Occupational Therapy Treatment Note M2 OT-IP Current Condition Start: 05/09/23 16:03 Freq: Status: Active Protocol: Document 05/09/23 16:03 CGR (Rec: 05/09/23 16:19 CGR [id number]) Occupational Therapy Current Condition Current Condition Evaluation Date 05/09/23 Treatment Diagnosis L4-S1 TLIF Diagnosis Onset Date 05/09/23 M3 OT- IP Subjective and Pain Start: 05/09/23 16:03 Freq: Status: Active Protocol: Document 05/10/23 11:38 [facility] (Rec: 05/10/23 13:28 [facility] [id number]) OT- Subjective Occupational Therapy Visit Type Type Treatment Note Visit Start Time 11:38 Visit Stop Time 11:54 Total Visit Minutes 16 Occupational Therapy Visit Comments Patient Comments Pt just trying to get out of bed to use the bathroom. Pt's present for caregiver training. Patient/Caregiver Goals To go home. OT Pain Assessment Pain When Pain Assessed At Rest Pain Present Pain Present Pain Reported Location back Intensity 5 Scale Used Numeric (0 - 10) M4 OT- IP ADL's Start: 05/09/23 16:03 Freq: Status: Active Protocol: Document 05/10/23 11:38 [facility] (Rec: 05/10/23 13:28 [facility] [id number]) OT RIT-Luyq-Gbyqnyx General Evaluation Self-Feeding Ability Independent OT ADL-Grooming General Evaluation Grooming Ability Independent OT ADL-Oral Care General Eval Oral Care Ability Independent Comments Oral Care Comments Educated best to spit into a cup or hinge at her hips to best follow her back precautions. OT ADL-Dressing Comments OT Dressing Comments Educated pt on LB dressing equipment of bomb squad officer, sock aid and long handled shoe horn. Pt states will not wear socks at this time. OT ADL-Toileting Comments OT Toileting Comments Pt able to comfortable wipe while standing. Educated on use of wipes or pads/brief at night. OT ADL-Bathing Comments OT Bathing Comments Pt states to shower at home. M5 OT- IP IADL's Start: 05/09/23 16:03 Freq: Status: Active Protocol: Document 05/09/23 16:03 CGR (Rec: 05/09/23 16:19 CGR [id number]) OT-Instrumental Activities of Daily Living Deficits IADL Deficits Identified No Deficits Home Safety Awareness Awareness of Need for Assistance at Home Good Awareness Ability to Problem Solve Emergency Able to Problem Solve Situations Medication Management Medication Management No Deficits Identified Money Management Money Management No Deficits Identified Meal Preparation Meal Preparation No Deficits Identified Ic Designer Custom Ic Designer Custom Caregiver Provides Assist Driving Driving Comments 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 M6 OT- IP Functional Cognition Start: 05/09/23 16:03 Freq: Status: Active Protocol: Document 05/09/23 16:03 CGR (Rec: 05/09/23 16:19 CGR [id number]) Cognitive Factors Limiting Selfcare Function Cognitive Ability Level of Alertness Alert Patient Orientation Name,Age,Birthday,Month,Date, Year,Day of Week,Place, Situation Attention Span Ability Capable of Focused Attention, Capable of Sustained Attention Ability to Follow Commands Able to Follow One Step Commands with Increased Time, Able to Follow One Step Commands with Repetition OT- Vision and Hearing OT- Hearing Assessment OT- Hearing Assessment WFL OT- Vision Assessment Visual Acuity Glasses For Reading Visual Attentiveness WFL Occular Pursuits WFL Visual Convergence WFL M7 OT- IP Mobility and Balance Start: 05/09/23 16:03 Freq: Status: Active Protocol: Document 05/10/23 11:38 [facility] (Rec: 05/10/23 13:28 [facility] [id number]) OT- Bed Mobility Assessment Supine to Sit Supine to Sit Assist Standby Assistance Sit to Supine Sit to Supine Assist Standby Assistance,Bedrails OT-Transfer Assessment Sit to and From Stand Sit to and from Stand Standby Assistance,Contact Guard Assistance Transfers Transfer Ability Standby Assistance,Contact Guard Assistance Technique Transfer Destination Bed,Toilet Transfer Technique Stand Step Pivot Devices Transfer Assistive Devices Gait Belt,Front Wheeled Walker Comments Mobility Comments ABle to educate pt's to denia/doff the gait belt and how to assist his especially coming to stand from lower surfaces. Pt states may have a bed rail at home, but also showed them the option of use of fww next to the bed to use to assist to get out of bed. OT- Balance Assessment Sitting Balance and Reactions Static Sitting Balance Ability Normal Dynamic Sitting Balance Ability Good Standing Balance and Reactions Static Standing Balance Ability Good Dynamic Standing Balance Ability Fair Comments Other Balance Tests/Deviations/Treatment Pt needing reminders not to : twist too much while turning with the fww. Pt's able to provide good cues safety cues for the pt. M8 OT- IP Objective Assessments Start: 05/09/23 16:03 Freq: Status: Active Protocol: Document 05/09/23 16:03 CGR (Rec: 05/09/23 16:19 CGR [id number]) OT Gross Range of Motion Upper Extremity Range of Motion Assessment Within Functional Limits OT Strength Upper Extremity Strength Assessment Within Functional Limits Comments Strength Comments grossly 4+/5 OT- Coordination Assessment Upper Extremity Finger to Nose Test Within Functional Limits Finger Tapping Test Within Functional Limits OT-Muscle Tone Assessment Muscle Tone WNL Yes OT Sensation Assessment Edema Edema Absent M9 OT- IP Assessment and Plan Start: 05/09/23 16:03 Freq: Status: Active Protocol: Document 05/10/23 11:38 [facility] (Rec: 05/10/23 13:28 [facility] [id number]) OT Summary Assessment and Plan Potential Rehabilitation Potential Excellent Analytic Complexity at Evaluation Low Summary OT Impairments Pain,Balance,Functional Mobility,Grooming,Dressing, Toileting,Bathing,Toilet Transfers,Shower Transfers, Activity Tolerance Progress Towards Goals Progressing Toward Goals Assessment Summary Pt doing well and able to show good safety and understanding to be able to assist his for all ADl and mobility needs. Pt looking to go home today. Goals Dressing Goal Independent Toileting Goal Independent Bathing Goal Independent Toilet Transfer Goal Independent Shower Transfer Goal Independent Days to Meet Goals 1 Frequency of Treatment Frequency Of Treatment Once a Day Treatment Plan OT Treatment Plan ADL Training,Functional Mobility,Patient/Family Education,Discharge Planning Discharge Recommendations OT Discharge Recommendations Home with Assistance Home Equipment Needs shower chair? Transportation Needs at Discharge Private Vehicle
--- NOTE | 2023-05-10 12:08 | PC.NURSE ---
1000: epstein d/c'd this am. mod UOP. able to ambulate w/ steady slow gait, good body mechanics. using FWW. unable to lift LE's once she is done walking, but doing well once on her feet. no unsafe maneuvers. accepted tylenol for BTP this morning, using ice packs. shadow drainage on low back dressing. d/c orders received. requesting to speak w/ Dr Masterson or KVNG Galindo. regarding a short conversation had w/ Dr Masterson after her surgery. about soft bones and the need to take Calcium and Vit D. message sent to PA requesting visit before d/c. pre-emptively printed d/c instructions w/ thorough information about Calcium and Vit D from dietary sources.
[2023-05-10] MEDS: hydrOXYzine pamoate 25 MG CAPSULE PO (13:36)
--- NOTE | 2023-05-10 14:45 | PT.IPTN ---
Current Diagnoses Spondylolisthesis, lumbar region (05/09/23) Spinal stenosis, lumbar region with neurogenic claudication (05/09/23) Surgery Performed Operation Date: 05/09/23 07:45 Actual Procedures p L4-5, L5-S1 TLIF with posterior instrumentation -Robot - Leo Masterson MD Physical Therapy Treatment Note M2 PT-IP Current Condition Start: 05/10/23 08:58 Freq: NEEDED Status: Active Protocol: Document 05/10/23 09:05 MB (Rec: 05/10/23 09:38 MB [id number]) Physical Therapy Current Condition Current Condition Evaluation Date 05/10/23 Treatment Diagnosis L4-5, L5-S1 TLIF post- instrumentation Onset Date 05/09/23 M3 PT-IP Subjective Start: 05/10/23 08:58 Freq: NEEDED Status: Active Protocol: Document 05/10/23 15:11 TS (Rec: 05/10/23 15:25 TS [id number]) Subjective Physical Therapy Visit Type Type Treatment Note Visit Start Time 14:45 Visit Stop Time 15:04 Total Visit Minutes 19 Notes Spouse present for caregiver training. Number of NURSE EXAMINER Visits 1 Physical Therapy Visit Comments Patient Comments Pt reports some pain in back and numbness in RLE but is feeling better this afternoon. Pt is agreeable to PT. Therapy Pain Assessment Pain When Pain Assessed During Mobility Pain Present Pain Present Pain Reported Location back Description Acute,Sharp,Spasm,Stabbing Pain Behaviors Facial Grimacing,Guarding, Wincing Pain Management Techniques Apply Cold,Distraction, Modification of Treatment,Re- positioning,Timing of Activity with Medications M4 PT-IP Mobility and Gait Start: 05/10/23 08:58 Freq: NEEDED Status: Active Protocol: Document 05/10/23 15:11 TS (Rec: 05/10/23 15:25 TS [id number]) PT-Bed Mobility Assessment Rolling Type of Rolling Log Rolling Level of Assist Standby Assistance,1 Person Assistance Supine to Sit Supine to Sit Minimal Assistance,1 Person Assistance Sit to Supine Sit to Supine Minimal Assistance,1 Person Assistance Scooting Scooting to Edge of Bed Standby Assistance PT-Transfer Assessment Sit to and From Stand Sit to and from Stand Contact Guard Assistance Equipment Transfer Assistive Device Gait Belt,Front Wheeled Walker Orthotic/Prosthetic Devices or Brace: No Comments Mobility Comments Supine to sit Hannah for uprighting trunk, cues were provided to pt and spouse on proper sequencing. Pt sat EOB with BUE support, spouse instrcuted in and performed donning of gait belt. Sit to stand w/ BUE support on FWW CGA from spouse. She ambulated ~100'SBA w/FWW, slow step thru gait and NBOS. Sit to supine into bed Hannah for LEs from spouse, cues were provided for sequencing to spouse and pt. Pt was left in bed with all needs met, preparing for d/c. Gait Assessment Gait Gait Assistance Required: Standby Assistance,1 Person Assist Distance (Feet) 100 Able to Maintain Weight Bearing Status Yes During Gait Assistive Devices Assistive Device Gait Belt,Front Wheeled Walker Orthotic/Prosthetic Devices or Brace: No Gait Deviations General Gait Pattern Antalgic,Decreased Stride Length,Decreased Feet Clearance Factors Limiting Gait Function Factors Limiting Gait Function Decreased Activity Tolerance, Decreased Sensation,Decreased Strength,Pain Comments Gait Comments See mobility comments PT-Balance Assessment Sitting Balance and Reactions Static Sitting Balance Ability Good Dynamic Sitting Balance Ability Fair Standing Balance and Reactions Static Standing Balance Ability Good Dynamic Standing Balance Ability Fair Device Used FWW M5 PT-IP Objective Assessments Start: 05/10/23 08:58 Freq: NEEDED Status: Active Protocol: Document 05/10/23 09:05 MB (Rec: 05/10/23 09:38 MB [id number]) Orientation Orientation/Cognition Level of Alertness Alert Orientation Name,Age,Birthday,Month,Date, Year,Day of Week,Place, Situation Language Function Ability No Deficits Noted Safety Awareness Understands Safety Issues Memory Description No Deficits Noted Gross Range of Motion Upper Extremity ROM Impairments Defer to OT Lower Extremity ROM Assessment Within Functional Limits Impairments Did not push range in legs or perform MMT given back surgery last date and pt with c/o right thigh numbness Strength Comments Strength Comments Deferred manual muscle testing and pt's LE strength is functional for transfers and gait with RW today Sensation Assessment Sensation Gross Sensation Right LE Impaired Sensation Description Numbness Comments Sensation Comments Right thigh numbness is new post-op and pt reports resolution of her pre-op left leg paresthesias M6 PT-IP Treatment Start: 05/10/23 08:58 Freq: NEEDED Status: Active Protocol: Document 05/10/23 15:11 TS (Rec: 05/10/23 15:25 TS [id number]) Physical Therapy Treatment Education Education Provided Precautions,Safety M7 PT-IP Assessment and Plan Start: 05/10/23 08:58 Freq: NEEDED Status: Active Protocol: Document 05/10/23 15:11 TS (Rec: 05/10/23 15:25 TS [id number]) PT Summary Assessment and Plan Potential Rehabilitation Potential Good Summary Impairments Pain,ROM,Strength,Balance, Sensation,Bed Mobility, Transfers,Gait,Activity Tolerance Progress Towards Goals Progressing Toward Goals Assessment Summary Rhea is making good progress with her mobility. She is Hannah for supine to sit and sit to supine into bed. She progressed her gait to ~100' SBA with slow step thru gait and NBOS. She has some numbness in her RLE but doesn' t appear to limit her mobility . Spouse was instructed in and performed bed mobility with pt, donning of gait belt and proper handplacement on belt for gait/sit to stands. PT is recommending pt return home with assist from spouse. Goals Bed Mobility Goal Independent Transfer Goal Independent,Front Wheeled Walker Gait Goal Independent,Front Wheel Walker Gait Distance 100 Days to Meet Goals 2 Frequency of Treatment Frequency Of Treatment Twice a Day Treatment Plan Physical Therapy Treatment Plan Bed Mobility Training,Transfer Training,Gait Training, Therapeutic Exercise,Balance Retraining,Post Op Education, Hot or Cold Pack,Neuromuscular Re-ed Precautions Lumbar Precautions Log Roll,No Twisting,Limit Bending,Lifting Restriction of 10 lbs,Gait Belt above Incisional Area Other Precautions Pt verbalized all back precautions without cues from PT. Weight Bearing Status Weight Bearing Status Weight Bear as Tolerated Recommendations To Nursing Amount of Assist Needed 1 Person Assist Discharge Recommendations PT Discharge Recommendations Home with Assistance, Outpatient PT Transportation Needs at Discharge Private Vehicle
--- NOTE | 2023-05-10 16:22 | PC.NURSE ---
d/c orders reviewed w/ patient by Heriberto PEDERSEN. transfer training provided for and patient by JUAN macias prior to d/c home. left floor via w/c, left facility w/ in private car. PRN vistaril and apap given prior to d/c, patient denied pain/discomfort at time of d/c.
== END 2023-05-10 16:30 | disposition home or self-care (01) | DRG 455 ==
PROVIDERS: Physician Assistant; Admitting Provider Orthopaedic Surgery Orthopaedic Surgery of the Spine; PCP Family Medicine; Referring Provider Orthopaedic Surgery Orthopaedic Surgery of the Spine; Visit Provider Orthopaedic Surgery Orthopaedic Surgery of the Spine
PROC: 0SG00AJ Fusion of Lumbar Vertebral Joint with Interbody Fusion Device, Posterior Approach, Anterior Column, Open Approach (ICD-10-PCS; principal; 2023-05-09 07:45)
DX: M43.16 Spondylolisthesis, lumbar region (principal); M48.062 Spinal stenosis, lumbar region with neurogenic claudication; M43.17 Spondylolisthesis, lumbosacral region
CPT/HCPCS: 36415; 72100; 76000; 81001; 85014; 85018; 97162; 97165; 97530; C1713; C9290; J0171; J0690; J1100; J1170; J2250; J2405; J2704; J3010

== ENCOUNTER → 2023-11-17 13:42 | Outpatient (CLI) | payer OTHER, SELFPAY ==
[2023-05-09 14:33] VITALS: BMI 27.8
--- NOTE | 2023-11-17 13:44 | DI.MRI.S_ITS ---
PROCEDURE: MR KNEE LT WO CON INDICATIONS: INTERNAL DERANGEMENT OF LEFT KNEE TECHNIQUE: Noncontrast sagittal PD fast spin echo and T2 fast spin echo with fat saturation, sagittal 3-D FLASH with fat saturation; coronal T1 spin echo and PD fast spin echo with fat saturation, and axial PD fast spin echo with fat saturation through the knee. COMPARISON: [facility], CR, XR KNEE 4+ VIEWS LEFT, 09/20/2023, 8:44. FINDINGS: Image quality: Excellent. Anterior cruciate ligament: Mild mucoid degeneration of the anterior cruciate ligament. Posterior cruciate ligament: Intact. Medial collateral ligament: Intact. Lateral collateral ligament: Intact. Medial meniscus: There is a radial tear at the posterior root attachment of the medial meniscus measuring approximately 8 mm in width. And associated meniscal ossicle is seen along the margin of the tear. Mild extrusion and intrasubstance degeneration of the meniscal body. Lateral meniscus: Mild free edge fibrillation versus shallow radial tearing at the body of the lateral meniscus. Medial and lateral tendons: The semimembranosus tendon insertions appear intact. Visualized portions of the pes anserinus tendons appear normal. The popliteus tendon is intact. Iliotibial band appears normal. Anterior structures: Small nonedematous suprapatellar and infrapatellar enthesophytes. The quadriceps and patellar tendons appear intact. No patellar subluxation. No femoral trochlear dysplasia or ventral trochlear prominence. No edema in the infrapatellar fat pad. Bones and cartilage: Moderate osseous edema is seen throughout the distal femur. There is a nondisplaced incomplete fracture line extending from the trochlear groove to the intercondylar notch. There is focal mild depression of the subchondral plate at the central weight-bearing portion of the medial femoral condyle measuring approximately 6 x 10 mm with minimal adjacent edema. No discrete fracture line is seen. Medial femorotibial cartilage: Moderate partial-thickness cartilage irregularity and thinning is seen at the weight-bearing portion of the medial femorotibial compartment. Small marginal osteophytes are present. Lateral femorotibial cartilage: There is focal grade 3 cartilage loss at the posterior weight-bearing portion of the lateral femoral condyle with mild to moderate cartilage irregularity in the remainder of the lateral compartment with small marginal osteophytes. Patellofemoral cartilage: High-grade cartilage loss is seen at the median ridge and lateral facet of the patella with subchondral cystic changes and edema. High-grade cartilage loss is also seen at the lateral femoral trochlea. Focal cartilage fissuring is seen at the inferior trochlear groove adjacent to the fracture site. Soft tissues: Moderate joint effusion is present. Small medial popliteal cyst. The musculature surrounding the knee is normal in bulk. IMPRESSION: 1. Nondisplaced incomplete fracture of the distal femur extending from the trochlear groove to the intercondylar notch with moderate surrounding osseous edema. 2. Osteochondral lesion versus small minimally impacted fracture at the central portion of the medial tibial plateau measuring 6 x 10 mm with irregularity of the subchondral plate and minimal adjacent edema. 3. Radial tearing of the posterior root attachment of the medial meniscus with associated meniscal ossicle and extrusion of the meniscal body. 4. Free edge fibrillation versus shallow radial tearing at the body of the lateral meniscus. 5. 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 Tricompartmental marginal osteophytes. 6. Moderate mucoid degeneration of the anterior cruciate ligament without significant tearing. 7. Moderate joint effusion. Small medial popliteal cyst. Approved by: Wilton Romero M.D. on 11/17/2023 at 15:50
== END ==
PROVIDERS: PCP Family Medicine; Referring Provider Orthopaedic Surgery Foot and Ankle Surgery; Visit Provider Orthopaedic Surgery Foot and Ankle Surgery
DX: S72.492A Other fracture of lower end of left femur, initial encounter for closed fracture (principal); S83.242A Other tear of medial meniscus, current injury, left knee, initial encounter; M25.462 Effusion, left knee; M71.22 Synovial cyst of popliteal space [Baker], left knee; M22.42 Chondromalacia patellae, left knee; M25.762 Osteophyte, left knee
CPT/HCPCS: 73721